=== PATIENT | female | born 1985 | race Caucasian/White ===

== ENCOUNTER 2017-03-26 14:17 | Observation (INO) | payer OTHER ==
[~2017-03-26] VITALS: Ht 175.3 cm; Wt 94.1 kg
[~2017-03-26 14:17] MED LIST: ALBU8.5H5 INH; IBUP-1222 PO; OXYC-302 PO; PREN1TAB60 PO
[2017-03-26] MEDS ORDERED: LACTATED RINGERS 1,000 ML IVBOLUS ONE (15:00)
[2017-03-26] MEDS ORDERED: ONDANSETRON 2MG/ML, 2ML IVPush ONE (15:00)
[2017-03-26] MEDS ORDERED: LACTATED RINGERS 1,000 ML IV SCH (15:00)
== END 2017-03-26 17:00 | disposition home or self-care (01) ==
LOC: LDOP 14:17 → LDIP 14:47
PROVIDERS: ADMIT Obstetrics & Gynecology; ATTEND Obstetrics & Gynecology
DX: O21.2 Late vomiting of pregnancy (principal); O26.893 Other specified pregnancy related conditions, third trimester; R10.9 Unspecified abdominal pain; Z3A.31 31 weeks gestation of pregnancy
CPT/HCPCS: 36415; 59025; 81001; 82731; 87086; 96360; 96361; 99211; G0378; J7120; G0463

== ENCOUNTER 2017-05-15 05:40 | Inpatient (IN) | payer OTHER ==
[~2017-05-15] VITALS: Ht 175.3 cm; Wt 110.0 kg
[2017-05-15] MEDS ORDERED: LACTATED RINGERS 1,000 ML IV SCH ×2 (05:43→06:00)
[2017-05-15] MEDS ORDERED: OXYTOCIN 30U/ 0.9% NaCL 500ML 500 ML IV SCH (05:43)
[2017-05-15] MEDS ORDERED: NEWBORN KIT ONE (05:54)
[2017-05-15] MEDS ORDERED: SODIUM CITRATE/CITRIC ACID 30 ML UDC ONE ×2 (05:54→05:55)
[2017-05-15] MEDS ORDERED: METOCLOPRAMIDE 5 MG/ML, 2ML ONE (05:55)
[2017-05-15] MEDS ORDERED: METOCLOPRAMIDE 5 MG/ML, 2ML IV ONE (06:00)
[2017-05-15] MEDS ORDERED: SODIUM CITRATE/CITRIC ACID 30 ML UDC PO ONE (06:00)
[2017-05-15] MEDS ORDERED: LACTATED RINGERS 1,000 ML IVBOLUS ONE (06:00)
[2017-05-15 06:25] LABS: BASOPHILS # (AUTO) 0.05 x10^3/uL (0-0.1); BASOPHILS % (AUTO) 0 % (0-1); EOSINOPHILS # (AUTO) 0.16 x10^3/uL (0-0.4); EOSINOPHILS % (AUTO) 2 % (1-7); LYMPHOCYTES # (AUTO) 1.91 x10^3/uL (1-3.4); LYMPHOCYTES % (AUTO) 18 % (22-44); MD NO; MEAN CORPUSCULAR HEMOGLOBIN 29.8 pg (27.0-34.8); MEAN CORPUSCULAR HGB CONC 33.6 g/dL (32.4-35.8); MEAN CORPUSCULAR VOLUME 88.7 fL (80-100); MEAN PLATELET VOLUME 8.4 fL (7.4-10.4); MONOCYTES % (AUTO) 7 % (2-9); NEUTROPHILS # (AUTO) 7.64 x10^3/uL (1.8-6.8); NEUTROPHILS % (AUTO) 73 % (42-75); PLATELET COUNT 187 x10^3/uL (130-400); RED BLOOD COUNT 4.57 x10^6/uL (3.82-5.3); RED CELL DISTRIBUTION WIDTH 13.9 % (9.6-15.2)
[2017-05-15] MEDS ORDERED: OXYTOCIN 30U/ 0.9% NaCL 500ML 500 ML ONE (07:04)
[2017-05-15] MEDS ORDERED: HYDROmorphone 2 MG/ML, 1ML ONE (07:14)
[2017-05-15] MEDS ORDERED: FENTANYL PF 100 MCG/2ML ONE (07:14)
[2017-05-15] MEDS ORDERED: ONDANSETRON 2MG/ML, 2ML ONE ×2 (07:14→09:50)
[2017-05-15] MEDS ORDERED: OXYTOCIN 10 UNITS/ML, 1ML ONE (07:14)
[2017-05-15] MEDS ORDERED: CEFAZOLIN 1,000 MG ONE (07:14)
[2017-05-15] MEDS ORDERED: EPHEDRINE 50 MG/ML, 1ML ONE (07:51)
[2017-05-15] MEDS: LACTATED RINGERS 1,000 ML IV SCH ×4 (08:49→18:49)
[2017-05-15] MEDS: OXYTOCIN 30U/ 0.9% NaCL 500ML 500 ML IV SCH ×2 (08:49→18:49)
[2017-05-15] MEDS ORDERED: BISACODYL 10 MG SUPP PR PRN (09:00)
[2017-05-15] MEDS ORDERED: SIMETHICONE 80 MG CHEW TAB PO PRN (09:00)
[2017-05-15] MEDS ORDERED: ACETAMINOPHEN 325 MG TABLET PO PRN ×2 (09:00)
[2017-05-15] MEDS: PRENATAL VIT/IRON/FA 1 EACH TABLET PO SCH (09:00)
[2017-05-15] MEDS ORDERED: MISOPROSTOL 200 MCG TABLET PR PRN (09:00)
[2017-05-15] MEDS ORDERED: CALCIUM CARBONATE 500 MG TAB.CHEW PO PRN (09:00)
[2017-05-15] MEDS ORDERED: METHYLERGONOVINE 0.2 MG/ML IM PRN (09:00)
[2017-05-15] MEDS ORDERED: morphine SULFATE 10 MG/ML, 1ML IVPush PRN ×2 (09:00)
[2017-05-15] MEDS ORDERED: CARBOPROST TROMETHAMINE 250 MCG/ML, 1ML IM PRN (09:00)
[2017-05-15] MEDS ORDERED: ONDANSETRON 2MG/ML, 2ML IV PRN (09:00)
[2017-05-15] MEDS ORDERED: HYDROmorphone 1 MG/ML, 1ML ONE (09:50)
[2017-05-15] MEDS ORDERED: ONDANSETRON 2MG/ML, 2ML IVPush ONE (10:00)
[2017-05-15] MEDS ORDERED: HYDROmorphone 1 MG/ML, 1ML IVPush PRN (10:00)
[2017-05-15] MEDS: KETOROLAC 30 MG/1 ML IVPush SCH ×3 (10:45→22:47)
[2017-05-15] MEDS ORDERED: KETOROLAC 30 MG/1 ML ONE (10:47)
[2017-05-15 11:10] VITALS: BP 116/78
[2017-05-15] MEDS: OXYcodone/APAP 5/325MG TABLET PO PRN ×4 (11:10→23:00)
[2017-05-15 16:36] LABS: BASOPHILS # (AUTO) 0.02 x10^3/uL (0-0.1); BASOPHILS % (AUTO) 0 % (0-1); EOSINOPHILS # (AUTO) 0.05 x10^3/uL (0-0.4); EOSINOPHILS % (AUTO) 0 % (1-7); LYMPHOCYTES # (AUTO) 1.48 x10^3/uL (1-3.4); LYMPHOCYTES % (AUTO) 14 % (22-44); MD NO; MEAN CORPUSCULAR HEMOGLOBIN 29.8 pg (27.0-34.8); MEAN CORPUSCULAR HGB CONC 33.3 g/dL (32.4-35.8); MEAN CORPUSCULAR VOLUME 89.4 fL (80-100); MEAN PLATELET VOLUME 8.2 fL (7.4-10.4); MONOCYTES # (AUTO) 0.54 x10^3/uL (0.2-0.8); MONOCYTES % (AUTO) 5 % (2-9); NEUTROPHILS # (AUTO) 8.88 x10^3/uL (1.8-6.8); NEUTROPHILS % (AUTO) 81 % (42-75); PLATELET COUNT 147 x10^3/uL (130-400); RED BLOOD COUNT 3.81 x10^6/uL (3.82-5.3); RED CELL DISTRIBUTION WIDTH 13.6 % (9.6-15.2)
[2017-05-15 19:30] VITALS: BP 112/72
[2017-05-16 00:43] VITALS: BP 120/72
[2017-05-16] MEDS: LACTATED RINGERS 1,000 ML IV SCH ×3 (00:49→08:49)
[2017-05-16] MEDS: OXYcodone/APAP 5/325MG TABLET PO PRN ×4 (03:01→15:38)
[2017-05-16] MEDS: OXYTOCIN 30U/ 0.9% NaCL 500ML 500 ML IV SCH (04:49)
[2017-05-16] MEDS: KETOROLAC 30 MG/1 ML IVPush SCH ×3 (04:50→17:00)
[2017-05-16 07:30] VITALS: BP 113/74
[2017-05-16] MEDS: DOCUSATE 100 MG CAPSULE PO PRN (07:46)
[2017-05-16] MEDS: PRENATAL VIT/IRON/FA 1 EACH TABLET PO SCH (07:46)
[2017-05-16] MEDS: IBUPROFEN 600 MG TABLET PO PRN (16:59)
[2017-05-16 20:00] VITALS: BP 112/62
[2017-05-17] MEDS: IBUPROFEN 600 MG TABLET PO PRN ×2 (06:20→12:11)
[2017-05-17 08:03] VITALS: BP 119/78
[2017-05-17] MEDS: DOCUSATE 100 MG CAPSULE PO PRN (08:50)
[2017-05-17] MEDS: PRENATAL VIT/IRON/FA 1 EACH TABLET PO SCH (08:50)
[2017-05-17] MEDS ORDERED: OXYC-302 PO (10:45)
[2017-05-17] MEDS ORDERED: IBUP-1222 PO (10:45)
== END 2017-05-17 17:04 | disposition home or self-care (01) | DRG 766 ==
LOC: LDIP 05:40 → 2NW 11:04
PROVIDERS: ADMIT Obstetrics & Gynecology; ATTEND Obstetrics & Gynecology
PROC: 10D00Z1 Extraction of Products of Conception, Low, Open Approach (ICD-10-PCS; principal; 2017-05-15)
DX: O34.211 Maternal care for low transverse scar from previous cesarean delivery (principal); E66.9 Obesity, unspecified; O33.9 Maternal care for disproportion, unspecified; J45.909 Unspecified asthma, uncomplicated; O99.52 Diseases of the respiratory system complicating childbirth; O99.214 Obesity complicating childbirth; O69.81X0 Labor and delivery complicated by cord around neck, without compression, not applicable or unspecified; Z37.0 Single live birth; Z3A.39 39 weeks gestation of pregnancy; Z68.35 Body mass index [BMI] 35.0-35.9, adult
CPT/HCPCS: 36415; 85025; 86850; 86900; J0690; J1170; J1885; J2405; J3010; J2590; J2765; J7120